=== PATIENT | male | born 1965 | race Caucasian/White ===

== ENCOUNTER 2021-03-28 09:55 | Outpatient (REF) | payer OTHER, SELFPAY ==
[2021-03-28 10:22] LABS: Basophils Absolute Auto 0.2 X10*3/uL (0.0-0.2); Basophils Percent Auto 1.2 % (0-2); Eosinophils Absolute Auto 0.5 X10*3/uL (0.0-0.4); Eosinophils Percent Auto 3.7 % (0-4); Hematocrit 48.6 % (42.0-52.0); Hemoglobin 15.9 g/dl (14.0-18.0); Imm Gran Abs Auto 0.03 X10*3/uL (0.00-0.03); Imm Gran Pct Auto 0.2 % (0.0-0.4); Lymphocytes Percent Auto 16.8 % (20-40); MANUAL DIFF FLAG NO; Mean Corpuscular HGB Conc 32.7 g/dl (31.0-36.0); Mean Corpuscular Hemoglobin 30.7 pg (27.0-33.0); Mean Corpuscular Volume 93.8 fL (80.0-98.0); Mean Platelet Volume 9.8 fL (9.4-12.4); Monocytes Absolute Auto 1.3 X10*3/uL (0.1-1.2); Monocytes Percent Auto 11.1 % (2-11); Platelet Count 330 X10*3/uL (160-400); Red Blood Count 5.18 X10*6/uL (4.60-5.80); Red Cell Distribution Width 13.5 % (11.0-16.0)
[2021-03-28 11:01] LABS: Alanine Aminotransferase 39 U/L (0-40); Albumin Level 4.5 g/dL (3.5-5.0); Alkaline Phosphatase 71 U/L (39-117); Anion Gap 14 (12-20); Aspartate Amino Transferase 22 U/L (5-37); Bilirubin Total 0.7 mg/dL (0.0-1.0); Blood Urea Nitrogen 11 mg/dL (9-16); Calcium 9.8 mg/dL (8.4-10.2); Carbon Dioxide 24 mmol/L (22-29); Chloride 108 mmol/L (96-108); Cholesterol 197 mg/dL; Estimated Glomerular Filt Rate > 60; Glucose Fasting 94 mg/dL (60-99); HDL Cholesterol 37 mg/dL; LDL Cholesterol Calculated 137 mg/dl; Potassium 4.3 mmol/L (3.3-5.1); Sodium 142 mmol/L (135-145); Total Protein 7.8 g/dL (6.5-8.0); Triglycerides 116 mg/dL
[2021-03-28 11:17] LABS: Uric Acid 7.1 mg/dL (3.4-7.0)
== END 2021-03-28 09:56 | disposition home or self-care (01) ==
LOC: HO.10HDL 09:55
PROVIDERS: Visit Provider Internal Medicine
DX: M10.9 Gout, unspecified (principal); J45.909 Unspecified asthma, uncomplicated; Z68.23 Body mass index [BMI] 23.0-23.9, adult; Z72.0 Tobacco use
CPT/HCPCS: 36415; 80053; 80061; 84550; 85025

== ENCOUNTER 2024-03-23 09:30 | Emergency (ER) | payer OTHER, SELFPAY ==
--- NOTE | ~2024-03-23 | CT_ITS ---
CLINICAL HISTORY: R sided swelling, ? abscess (dental) CT soft tissue neck with contrast Comparison: None Findings: The visualized intracranial contents are unremarkable. There is lucency surrounding the root of a right mandibular molar tooth. Diffuse soft tissue edema of the right side of the neck. There is enlargement of the right palatine tonsil. There is complex fluid density surrounding the right side of the mandible, i.e., 1 x 3.8 cm posterior to the mandible series 2, image 63 and on image 46. There is swelling and inferior displacement of the right submandibular gland. There are reactive right-sided cervical lymph nodes. Asymmetric soft tissue edema of the right side of the hypopharynx best visualized on series 4, image 37. There is effacement of the right piriformis sinus. Thickening of the epiglottis best visualized on the lateral view image 22. No evidence of retropharyngeal abscess. There is leftward deviation of the airway. Salivary glands are within normal limits. No sialoliths. Thyroid gland is unremarkable. Visualized lung apices are clear. No acute fracture or dislocation. IMPRESSION: Likely infection secondary to a dental abscess involving a right mandibular molar tooth. Large abscess of the right neck surrounding the mandible. Asymmetric large area of soft tissue edema involving the right side of the hypopharynx. Phlegmon or early abscess can not be excluded. There is thickening of the epiglottis and leftward deviation of the airway. ENT evaluation is recommended. This document has been electronically signed by: Agnieszka Villalba MD on 03/23/2024 14:20:45
[2024-03-23 09:47] VITALS: BP 110/72; PULSE 113; RESP 18; TEMP 36.9; O2SAT 98; BMI 18.3
[2024-03-23 10:05] LABS: IDNOW Serial# 58CA691E; Strep A Nucleic Acid Negative (Negative)
--- NOTE | 2024-03-23 11:38 | ED.GENADULT ---
HPI - General Adult General Chief complaint: Dental/Oral Stated complaint: sore throat, cough Time Seen by Provider: 03/23/24 11:34 Source: patient, RN notes reviewed and old records reviewed Mode of arrival: ambulatory Limitations: no limitations History of Present Illness ED Provider: Rut [facility] narrative: Patient is a 58-year-old male with history of COPD, smoker but states has not smoked in the past 4 days presenting to the emergency department with complaint of right-sided neck and facial swelling. States symptoms began as right lower jaw dental pain and progressed to swelling to the entire right side of his face. Complains muffled voice, chills, difficulty swallowing. States he is not able to fully open his jaw. Denies any spontaneous discharge or drainage. MD complaint: jaw swelling Onset (ago): day(s) Quality: aching Associated symptoms: fever/chills Treatments prior to arrival: none Related Data Allergies Allergy/AdvReac Type Severity Reaction Status Date / Time No Known Allergies Allergy Verified 03/23/24 09:51 Review of Systems Review of Systems: As per HPI Yes all other systems are reviewed and are negative Constitutional: Constitutional: Reports as per HPI [facility] Social History Social History Advance Directives: No Advance Directives Information Provided: Yes Physical Exam ED Vital Signs: Vital Signs - 24 hr 03/23/24 09:47 03/23/24 13:00 Temperature 98.4 F 98.3 F Pulse Rate 113 H 80 Respiratory Rate 18 16 Blood Pressure 110/72 119/78 Pulse Oximetry 98 97 Oxygen Delivery Method Room Air Room Air BMI result Body Mass Index 18.3 Vital signs have been reviewed and appear to be correct. Blood pressure normal. Heart rate mildly tachycardic. Respiratory rate normal. Temperature normal. Oxygen saturation normal. Const General: cooperative, healthy appearing and no acute distress Orientation/consciousness: oriented to person, oriented to place, oriented to time and patient oriented x3 Limitations: no limitations HENMT Head: Yes normocephalic and Yes atraumatic Ears: external ears normal General nose exam: Normal external nose present Face and sinus: Yes face symmetric Mouth: oropharynx normal, moist mucous membranes, no drooling, muffled voice and restricted motion Teeth and gingiva: poor dentition Throat: Yes uvula midline and No uvular edema Eyes Pupils: Equal, round and reactive pupils present Neck Neck: Yes normal visual inspection, Yes supple and Yes submandibular swelling (right) Resp Effort & Inspection: normal respiratory effort and able to speak in complete sentences Auscultation: clear to auscultation bilaterally Cardio Rate: regular rate Rhythm: regular rhythm Heart sounds: S1 normal heart sound present and S2 normal heart sound present GI Palpation (GI): Soft to palpation and nontender Auscultation: normoactive bowel sounds General: Yes no CVA tenderness Back/Spine/Pelvis Back: no CVA tenderness Skin General skin exam: elasticity normal and turgor normal Neuro General: oriented to person, oriented to place, oriented to time, patient oriented x3, moves all extremities, no focal motor deficits and CN's II-XI intact bilaterally Cranial nerves: Yes Equal, round and reactive pupils present Cognition (Neuro): normal cognition Extrem General: Yes full ROM, Yes no pedal edema and Yes no calf tenderness Psych Mental Status: mental status grossly normal Affect: normal affect Thought process: Normal thought process present Course Reevaluation(s) Reevaluation #1: Received call from lab of significant leukocytosis, patient is now meeting sepsis criteria. Blood cultures and lactic ordered as well as Zosyn. Time: 12:42 Medications Administered Discontinued Medications Generic Name Dose Route Start Last Admin Trade Name Freq PRN Reason Stop Dose Admin Piperacillin Sod/Tazobactam 50 mls @ 100 mls/hr 03/23/24 12:41 03/23/24 13:25 Sod 3.375 gm/ Sodium Chloride IV 03/23/24 13:10 Infused ONCE ONE Infusion Iohexol 60 ml 03/23/24 13:17 03/23/24 13:17 Iohexol 350 Mg/Ml 100 Ml Infus..Btl IV 03/23/24 13:18 60 ml ONCE ONE Administration Ketorolac Tromethamine 15 mg 03/23/24 14:10 03/23/24 14:28 Ketorolac Tromethamine 15 Mg/Ml Vial IVPUSH 03/23/24 14:11 15 mg ONCE ONE Administration Medical Decision Making Medical Decision Making MDM Narrative: Patient is a 58-year-old male with history of COPD, smoker but states has not smoked in the past 4 days presenting to the emergency department with complaint of right-sided neck and facial swelling. On exam patient is awake, A+Ox3, mildly tachycardic, VS otherwise WNL, afebrile, normal neurological exam without focal deficits, physical exam findings as above. Given reported symptoms and physical exam findings, initial differential includes but is not limited to deep neck space infection, dental infection/abscess, malignancy/mass, parotitis. Labs notable for significant leukocytosis with left shift, elevated ESR and CRP. Lactic normal. CT soft tissue neck notable for large abscess the right neck surrounding the mandible with asymmetric soft tissue edema and leftward deviation of the airway. My interpretation is in agreement with the radiologist's interpretation. Patient's airway is stable at this time. Case discussed with Dr. Blanco who is in agreement with transfer for management by ENT which is not available here. Call placed to [facility], spoke with ENT who feels [facility]FS should manage as infection appears to have originated from a dental infection. Spoke to Dr. Rodriguez from [facility] who states he is unable to directly admit the patient, and recommends ED to ED transfer. ED to ED transfer accepted by Dr. Escobar, attending MD at [facility]. Patient states that he is not willing to be transported via ambulance as this will not be covered by his insurance. Discussed with patient the severity of his condition and that the risks of refusing transport include airway compromise and . Patient is alert and oriented x 3, has the capacity to make this decision at this time. He is not currently experiencing any airway compromise. Patient states his daughter will drive him directly to [facility] ED. Patient advised to go directly to [facility] and not stop anywhere on the way, and not eat or drink anything on the way. Patient verbalized understanding of and agreement with plan. The patient has decided to leave against medical advice because he is refusing ambulance transport to [facility] ED. They have normal mental status and adequate capacity to make medical decisions. The risks have been explained to the patient, including airway compromise, worsening illness, chronic pain, permanent disability and . The patient was able to understand and state the risks and benefits of ambulance transport. This was witnessed by nurse Gaby, NORA, and me. They had the opportunity to ask questions about their medical condition. The patient was treated to the extent that they would allow and knows that they may return for care at any time. Follow-up has been discussed and arranged with Dr. Escobar, attending MD at [facility]. Differential Diagnosis Differential Diagnoses: The differential diagnosis associated with the presentation includes As per [facility] Admission/Observation Consideration of admission/observation: Escalation of care including admission/observation considered Consult Healthcare Provider Management of the patient was discussed with: Customer Sales Distributor (Dr. Blanco) Lab Data [facility] Lab Attestation statement: I reviewed the patient's lab results. As per [facility] 03/23/24 12:04 03/23/24 12:04 Labs: Lab Results 03/23/24 03/23/24 03/23/24 Range/Units 09:53 12:04 12:52 WBC 34.1 H* (4.8-10.8) X10*3/uL RBC 5.07 (4.60-5.80) X10*6/uL Hgb 16.0 (14.0-18.0) g/dl Hct 46.1 (42.0-52.0) % MCV 90.9 (80.0-98.0) fL MCH 31.6 (27.0-33.0) pg MCHC 34.7 (31.0-36.0) g/dl RDW 14.1 (11.0-16.0) % Plt Count 249 (160-400) X10*3/uL MPV 10.1 (9.4-12.4) fL Immature Gran % (Auto) 2.4 H (0.0-0.4) % Neut % (Auto) 82.4 H (45-73) % Lymph % (Auto) 2.1 L (20-40) % [place] % (Auto) 12.6 H (2-11) % Eos % (Auto) 0.0 (0-4) % Baso % (Auto) 0.5 (0-2) % Lymph # (Auto) 0.7 L (1.2-4.9) X10*3/uL [place] # (Auto) 4.3 H (0.1-1.2) X10*3/uL Eos # (Auto) 0.0 (0.0-0.4) X10*3/uL Baso # (Auto) 0.2 (0.0-0.2) X10*3/uL Abs Immat Gran (auto) 0.81 H (0.00-0.03) X10*3/uL Absolute Neuts (auto) 28.1 H (2.0-8.3) x10*3/uL Absolute Nucleated RBC 0.000 (0.0-0.012) X10*3/uL Nucleated RBC % (auto) 0.0 (0.0-0.2) /100WBC Smear Tech's Comments VERIFIED ESR 51 H (0-15) MM/HR PT 11.2 (10.9-12.4) SEC INR 1.0 (0.9-1.1) Sodium 138 (135-145) mmol/L Potassium 4.4 (3.3-5.1) mmol/L Chloride 100 (96-108) mmol/L Carbon Dioxide 24 (22-29) mmol/L Anion Gap 18 (12-20) BUN 30 H (9-16) mg/dL Creatinine 1.30 (0.5-1.4) mg/dL Estim Creat Clear Calc 48.7 Estimated GFR 57 Random Glucose 101 (60-115) mg/dL Lactic Acid 1.4 (0.5-2.0) mmol/L Calcium 10.4 H D (8.4-10.2) mg/dL Total Bilirubin 0.6 (0.0-1.0) mg/dL AST 22 (5-37) U/L ALT 10 (0-40) U/L Alkaline Phosphatase 116 (39-117) U/L C-Reactive Protein 39.79 H (< or = 0.50) mg/dL Total Protein 8.9 H (6.5-8.0) g/dL Albumin 4.2 (3.5-5.0) g/dL S. pyogenes GrpA MUSA Negative (Negative) Independent Interpretation I performed an independent interpretation of an: CT Scan Interpretation: CT soft tissue neck notable for large abscess of right neck surrounding the mandible with associated soft tissue edema involving right hypopharynx and leftward deviation of the airway Radiology Impression Discussion of test interpretation with radiology: I have reviewed the radiologist's reading. Radiologist Impression: IMPRESSION: Likely infection secondary to a dental abscess involving a right mandibular molar tooth. Large abscess of the right neck surrounding the mandible. Asymmetric large area of soft tissue edema involving the right side of the hypopharynx. Phlegmon or early abscess can not be excluded. There is thickening of the epiglottis and leftward deviation of the airway. ENT evaluation is recommended. External Record Review External record reviewed: Inpatient record, Office record and Outpatient record Prescription Management I considered prescription management with: Antibiotic Critical Care Time Critical Care Time Critical Care Time: Yes Total Critical Care Time: 55 Attestation: I have personally provided critical care time exclusive of time spent on separately billable procedures. Time includes review of lab data, radiology results, discussion with consultants, and monitoring for potential decompensation. Intervention performed as documented. Discharge Plan Discharge Clinical Impression: Abscess of neck Patient Disposition: Left Against Medical Advice Additional Instructions: You have been accepted as an ED to ED transfer at [facility] at [address] [place] [address] in [place], [place]. YOU MUST GO DIRECTLY TO THE EMERGENCY DEPARTMENT THERE. Do not make any stops on your way, do not eat or drink anything on your way there. If you develop difficulty breathing at any point on the way there, call 911 IMMEDIATELY. Stand Alone Forms: Against Medical Advice Print Language: Greek
[2024-03-23 12:19] LABS: Prothrombin Time 11.2 SEC (10.9-12.4)
[2024-03-23 12:33] LABS: Basophils Absolute Auto 0.2 X10*3/uL (0.0-0.2); Basophils Percent Auto 0.5 % (0-2); Hematocrit 46.1 % (42.0-52.0); Imm Gran Abs Auto 0.81 X10*3/uL (0.00-0.03); Imm Gran Pct Auto 2.4 % (0.0-0.4); Lymphocytes Absolute Auto 0.7 X10*3/uL (1.2-4.9); Lymphocytes Percent Auto 2.1 % (20-40); MANUAL DIFF FLAG SCAN; Mean Corpuscular HGB Conc 34.7 g/dl (31.0-36.0); Mean Corpuscular Hemoglobin 31.6 pg (27.0-33.0); Mean Corpuscular Volume 90.9 fL (80.0-98.0); Mean Platelet Volume 10.1 fL (9.4-12.4); Monocytes Absolute Auto 4.3 X10*3/uL (0.1-1.2); Monocytes Percent Auto 12.6 % (2-11); Neutrophils Absolute Auto 28.1 x10*3/uL (2.0-8.3); Neutrophils Percent Auto 82.4 % (45-73); Platelet Count 249 X10*3/uL (160-400); Red Blood Count 5.07 X10*6/uL (4.60-5.80); Red Cell Distribution Width 14.1 % (11.0-16.0); SCAN SMEAR FLAG 1
[2024-03-23 12:36] LABS: White Blood Count 34.1 X10*3/uL (4.8-10.8)
[2024-03-23 12:44] LABS: SLIDE REVIEW VERIFIED
[2024-03-23 12:49] LABS: Alanine Aminotransferase 10 U/L (0-40); Albumin Level 4.2 g/dL (3.5-5.0); Alkaline Phosphatase 116 U/L (39-117); Anion Gap 18 (12-20); Aspartate Amino Transferase 22 U/L (5-37); Bilirubin Total 0.6 mg/dL (0.0-1.0); Blood Urea Nitrogen 30 mg/dL (9-16); C Reactive Protein 39.79 mg/dL (< or = 0.50); Calcium 10.4 mg/dL (8.4-10.2); Carbon Dioxide 24 mmol/L (22-29); Chloride 100 mmol/L (96-108); Creatinine Clr Calc Pharmacy 48.7; Estimated Glomerular Filt Rate 57; Glucose Random 101 mg/dL (60-115); Potassium 4.4 mmol/L (3.3-5.1); Sodium 138 mmol/L (135-145); Total Protein 8.9 g/dL (6.5-8.0)
[2024-03-23] MEDS: Piperacillin Sodium/Tazobactam 3.375 GM in 0.9 % Sodium Chloride 50 ML IV (12:52)
[2024-03-23 12:57] LABS: Erythrocyte Sedimentation Rate 51 MM/HR (0-15)
[2024-03-23 13:00] VITALS: BP 119/78; PULSE 80; RESP 16; TEMP 36.8; O2SAT 97
[2024-03-23] MEDS: iohexoL 350 MG/ML 100 ML INFUS..BTL 60 ML IV (13:17)
[2024-03-23 13:26] LABS: Lactic Acid 1.4 mmol/L (0.5-2.0)
[2024-03-23] MEDS: Ketorolac Tromethamine 15 MG/ML VIAL IVPUSH (14:28)
--- NOTE | 2024-03-23 16:15 | PC.NURSE ---
PT refused to take ambulance to for transfer pt to sign out AMA, this nurse and provider went over risks of going ama wit pt,pt verbalizes risks, ama paper signed, refusal for transfer paper signed.
[2024-03-23 20:58] VITALS: BP 119/78; PULSE 80; RESP 16; TEMP 36.8; O2SAT 97
--- NOTE | 2024-03-24 00:01 | PC.NURSE ---
Addendum entered by Gaby Christy 03/24/24 00:02: @ 1252 03/23/24 Original Note: no fluids per provider
== END 2024-03-23 16:58 | disposition left against medical advice (07) ==
PROVIDERS: Registered Nurse Emergency; Emergency Provider Emergency Medicine; PCP Internal Medicine
DX: L02.11 Cutaneous abscess of neck (principal); J02.9 Acute pharyngitis, unspecified; R00.0 Tachycardia, unspecified; R05.9 Cough, unspecified; R50.9 Fever, unspecified; F17.210 Nicotine dependence, cigarettes, uncomplicated; Z79.899 Other long term (current) drug therapy
CPT/HCPCS: 36415; 70491; 80053; 83605; 85025; 85610; 85652; 86140; 87040; 87076; 87205; 87651; 96374; 96375; 99284; J1885; J2543; Q9967

== ENCOUNTER 2024-05-19 13:24 | Emergency (ER) | payer OTHER, SELFPAY ==
--- NOTE | ~2024-05-19 | CT_ITS ---
CLINICAL HISTORY: ? abscess CT soft tissue neck with contrast Comparison: CT/AR/SR - CT SOFT TISSUE NECK W IV CON - 03/23/24 13:11 EST Findings: The visualized intracranial contents are unremarkable. Previous right-sided facial abscess surrounding the mandible appears resolved. There has been additional dental extractions along the right mandible with resulting lucency. Previous adenopathy as decreased. The thyroid gland is unremarkable. The nasopharynx, oropharynx and hypopharynx appear symmetric. Temporomandibular joints are stable. Paranasal sinuses appear essentially clear. Lung apices are clear. Impression: Interval resolution of the previous right-sided facial abscess surrounding the mandible. Decreasing local adenopathy. No new abscess. Additional dental extractions have been performed with resulting lucencies within the mandible and maxilla. This document has been electronically signed by: Roberth Anne MD on 05/19/2024 18:36:06
[2024-05-19 14:21] VITALS: BP 155/77; PULSE 48; RESP 16; TEMP 36.7; O2SAT 97; BMI 23.5
--- NOTE | 2024-05-19 14:22 | ED_ITS ---
HPI - General Adult General Chief complaint: General Medical Stated complaint: CT for throat , sent by Time Seen by Provider: 05/19/24 16:33 Source: patient, RN notes reviewed and old records reviewed Mode of arrival: ambulatory Limitations: no limitations History of Present Illness ED Provider: Jeff PORTER narrative: 58-year-old male presents for evaluation of a sore throat. Patient was seen here 2 days ago with a large neck abscess and dental abscess. He was better where he required 2 different operations to drain the abscess +4 days he has had pain with swallowing. He was able to manage his secretions. His pain is mostly right-sided He has pain with opening his mouth He denies any difficulty breathing. He reports that he recently finished antibiotics for oral surgery Per his med rec, the patient was given a 10 day course of amoxicillin on 05/06/2024 Related Data Allergies Allergy/AdvReac Type Severity Reaction Status Date / Time No Known Allergies Allergy Verified 05/19/24 14:25 Review of Systems 2 Constitutional: Constitutional: Denies body ache(s), Denies chills and Denies fever(s) ENT: Denies vertigo, Denies dizziness, Reports sore throat and Reports throat swelling Cardiovascular: Cardiovascular: Denies chest pain and Denies dyspnea Respiratory: Respiratory: Denies cough and Denies dyspnea Gastrointestinal: Gastrointestinal: Denies abdominal pain, Denies nausea and Denies vomiting Musculoskeletal: Musculoskeletal: Denies back pain Integumentary/Breasts: Skin/Breast: Denies rash Neurologic: Denies vertigo and Denies dizziness Allergic/Immunologic: Allergic/Immunologic: Reports throat swelling PMFSH Social History Social History Advance Directives: No Advance Directives Information Provided: No Physical Exam ED Vital Signs: Vital Signs - 24 hr 05/19/24 14:21 05/19/24 17:04 Temperature 98.1 F Pulse Rate 48 L 48 L Respiratory Rate 16 14 Blood Pressure 155/77 H 157/76 H Pulse Oximetry 97 99 Oxygen Delivery Method Room Air Room Air BMI result Body Mass Index 23.5 Const General: healthy appearing, comfortable, no acute distress, alert and awake Nutritional Appearance: well nourished Orientation/consciousness: patient oriented x3 HENMT Other: Patient has very poor dentition. No Ubaldo's angina, no fullness of the soft palate Head: Yes normocephalic and Yes atraumatic Throat: Yes posterior oropharynx normal Eyes Eyelids: Yes eyelids normal Conjunctivae: conjunctivae normal Sclerae: sclerae normal Corneas: corneas normal Pupils: Equal, round and reactive pupils present EOM: EOMs intact bilaterally Neck Other: There is no anterior neck edema Neck: Yes full ROM Resp Effort & Inspection: normal respiratory effort, able to speak in complete sentences and not labored Skin General skin exam: elasticity normal Neuro General: patient oriented x3 Cranial nerves: Yes Equal, round and reactive pupils present and Yes Bilaterally intact EOM present Cognition (Neuro): normal cognition Extrem Other: Moving all extremities well without any obvious deformities Course Course Course Narrative: This is a rapid medical exam performed by Medina Bettencourt NP: Additional HPI, ROS, PE not included below will be deferred to primary provider. Patient is a 58-year-old male with history of smoking presenting from urgent care with complaint of severe sore throat x 4 days. Just finished a week of abx without improvement. Pain worse on right side, +trismus. Recent transfer to [facility] for surgery for neck abscess, patient states he requires 2 surgeries, multiple drains, etc. Plan: labs, CT Reevaluation(s) Reevaluation #1: Clinically, the patient does not have any obvious did not feel or retropharyngeal abscess. The CT scan does not show any evidence of abscess. I discussed these results with the patient, he may have a viral pharyngitis, but I do not see any indication for further antibiotics. We will discharge the patient to follow up with his outpatient providers. He reports he actually sees his PCP tomorrow Time: 18:45 Medications Administered Discontinued Medications Generic Name Dose Route Start Last Admin Trade Name Martha PRN Reason Stop Dose Admin Sodium Chloride 1,000 mls @ 999 mls/hr 05/19/24 17:00 05/19/24 17:14 Ns IV 05/19/24 18:00 999 mls/hr .Q1H1M CHRISTA Administration Iohexol 60 ml 05/19/24 17:38 05/19/24 17:39 Iohexol 350 Mg/Ml 100 Ml Infus..Btl IV 05/19/24 17:39 60 ml ONCE ONE Administration Ketorolac Tromethamine 15 mg 05/19/24 16:56 05/19/24 17:14 Ketorolac Tromethamine 15 Mg/Ml Vial IVPUSH 05/19/24 16:57 15 mg ONCE ONE Administration Medical Decision Making Medical Decision Making [facility] Narrative: 58-year-old male presents for evaluation of a sore throat. He was here 2 months ago for a neck and dental abscess. His exam is reassuring, however given his recent significant abscess requiring operating room intervention we will get a CT scan of the neck to rule out a small abscess or developing abscess. The patient's labs are significantly improved compared to his recent visit. He has no leukocytosis and inflammatory markers are negative. Differential Diagnosis Differential Diagnoses: The differential diagnosis associated with the presentation includes Neck abscess Pharyngitis Strep pharyngitis Dental abscess Dental caries Lab Data [facility] Lab Attestation statement: I reviewed the patient's lab results. No leukocytosis or significant anemia. Normal platelet count. No significant electrolyte abnormalities warranting intervention. Renal function 5 05/19/24 15:04 05/19/24 15:04 Labs: Lab Results 05/19/24 05/19/24 Range/Units 15:04 17:06 WBC 8.5 (4.8-10.8) X10*3/uL RBC 4.34 L (4.60-5.80) X10*6/uL Hgb 13.5 L (14.0-18.0) g/dl Hct 39.3 L (42.0-52.0) % MCV 90.6 (80.0-98.0) fL MCH 31.1 (27.0-33.0) pg MCHC 34.4 (31.0-36.0) g/dl RDW 14.7 (11.0-16.0) % Plt Count 293 (160-400) X10*3/uL MPV 9.6 (9.4-12.4) fL Immature Gran % (Auto) 0.4 (0.0-0.4) % Neut % (Auto) 62.1 (45-73) % Lymph % (Auto) 23.6 (20-40) % [place] % (Auto) 10.6 (2-11) % Eos % (Auto) 2.5 (0-4) % Baso % (Auto) 0.8 (0-2) % Lymph # (Auto) 2.0 (1.2-4.9) X10*3/uL [place] # (Auto) 0.9 (0.1-1.2) X10*3/uL Eos # (Auto) 0.2 (0.0-0.4) X10*3/uL Baso # (Auto) 0.1 (0.0-0.2) X10*3/uL Abs Immat Gran (auto) 0.03 (0.00-0.03) X10*3/uL Absolute Neuts (auto) 5.3 (2.0-8.3) x10*3/uL Absolute Nucleated RBC 0.000 (0.0-0.012) X10*3/uL Nucleated RBC % (auto) 0.0 (0.0-0.2) /100WBC ESR 3 (0-15) MM/HR Sodium 144 (135-145) mmol/L Potassium 3.5 D (3.3-5.1) mmol/L Chloride 109 H (96-108) mmol/L Carbon Dioxide 29 (22-29) mmol/L Anion Gap 10 L (12-20) BUN 9 (9-16) mg/dL Creatinine 0.81 (0.5-1.4) mg/dL Estim Creat Clear Calc 82.2 Estimated GFR > 60 Random Glucose 82 (60-115) mg/dL Calcium 9.2 D (8.4-10.2) mg/dL Total Bilirubin 0.4 (0.0-1.0) mg/dL AST 23 (5-37) U/L ALT 15 (0-40) U/L Alkaline Phosphatase 69 (39-117) U/L C-Reactive Protein < 0.04 (< or = 0.50) mg/dL Total Protein 7.5 (6.5-8.0) g/dL Albumin 3.9 (3.5-5.0) g/dL S. pyogenes GrpA MUSA Negative (Negative) Discharge Plan Discharge Clinical Impression: Pharyngitis Patient Disposition: Home, Self-Care Instructions: Pharyngitis (ED) Additional Instructions: Your blood work today was reassuring, you tested negative for strep pharyngitis. Your CT scan does not show any new abscesses and does show resolution of the previous abscess from 2 months ago Fin or Tylenol or sore throat. You may also use Chloraseptic spray or magic mouthwash which is [id number] medication to help with the pain in your throat Stand Alone Forms: Work/School Release Print Language: Faroese
[2024-05-19 15:07] LABS: MANUAL DIFF FLAG NO
[2024-05-19 15:19] LABS: Basophils Absolute Auto 0.1 X10*3/uL (0.0-0.2); Basophils Percent Auto 0.8 % (0-2); Eosinophils Absolute Auto 0.2 X10*3/uL (0.0-0.4); Eosinophils Percent Auto 2.5 % (0-4); Hematocrit 39.3 % (42.0-52.0); Hemoglobin 13.5 g/dl (14.0-18.0); Imm Gran Abs Auto 0.03 X10*3/uL (0.00-0.03); Imm Gran Pct Auto 0.4 % (0.0-0.4); Lymphocytes Percent Auto 23.6 % (20-40); Mean Corpuscular HGB Conc 34.4 g/dl (31.0-36.0); Mean Corpuscular Hemoglobin 31.1 pg (27.0-33.0); Mean Corpuscular Volume 90.6 fL (80.0-98.0); Mean Platelet Volume 9.6 fL (9.4-12.4); Monocytes Absolute Auto 0.9 X10*3/uL (0.1-1.2); Monocytes Percent Auto 10.6 % (2-11); Neutrophils Absolute Auto 5.3 x10*3/uL (2.0-8.3); Neutrophils Percent Auto 62.1 % (45-73); Platelet Count 293 X10*3/uL (160-400); Red Blood Count 4.34 X10*6/uL (4.60-5.80); Red Cell Distribution Width 14.7 % (11.0-16.0); White Blood Count 8.5 X10*3/uL (4.8-10.8)
[2024-05-19 15:31] LABS: Alanine Aminotransferase 15 U/L (0-40); Albumin Level 3.9 g/dL (3.5-5.0); Anion Gap 10 (12-20); Aspartate Amino Transferase 23 U/L (5-37); Bilirubin Total 0.4 mg/dL (0.0-1.0); Blood Urea Nitrogen 9 mg/dL (9-16); C Reactive Protein < 0.04 mg/dL (< or = 0.50); Calcium 9.2 mg/dL (8.4-10.2); Carbon Dioxide 29 mmol/L (22-29); Chloride 109 mmol/L (96-108); Creatinine Clr Calc Pharmacy 82.2; Estimated Glomerular Filt Rate > 60; Glucose Random 82 mg/dL (60-115); Potassium 3.5 mmol/L (3.3-5.1); Sodium 144 mmol/L (135-145); Total Protein 7.5 g/dL (6.5-8.0)
[2024-05-19 15:32] LABS: Alkaline Phosphatase 69 U/L (39-117)
[2024-05-19 16:36] LABS: Erythrocyte Sedimentation Rate 3 MM/HR (0-15)
[2024-05-19 17:04] VITALS: BP 157/76; PULSE 48; RESP 14; O2SAT 99
[2024-05-19] MEDS: 0.9 % Sodium Chloride 1,000 ML 999 ML IV (17:14)
[2024-05-19] MEDS: Ketorolac Tromethamine 15 MG/ML VIAL IVPUSH (17:14)
[2024-05-19 17:27] LABS: IDNOW Serial# 58CA691E; Strep A Nucleic Acid Negative (Negative)
[2024-05-19] MEDS: iohexoL 350 MG/ML 100 ML INFUS..BTL 60 ML IV (17:39)
[2024-05-19 19:18] VITALS: BP 148/72; PULSE 52; RESP 16; TEMP 37; O2SAT 99
== END 2024-05-19 19:18 | disposition home or self-care (01) ==
PROVIDERS: Physician Assistant; Registered Nurse Emergency; Emergency Provider Emergency Medicine; PCP Internal Medicine
DX: J02.9 Acute pharyngitis, unspecified (principal); R13.10 Dysphagia, unspecified; R25.2 Cramp and spasm; Z87.891 Personal history of nicotine dependence; Z79.899 Other long term (current) drug therapy
CPT/HCPCS: 36415; 70491; 80053; 85025; 85652; 86140; 87651; 96374; 99284; J1885; Q9967

== ENCOUNTER → 2024-05-19 16:56 | Outpatient (BNV) | payer OTHER, SELFPAY | PROVIDERS: Emergency Provider Emergency Medicine; PCP Internal Medicine; Visit Provider Radiology Vascular & Interventional Radiology | DX: R07.0 Pain in throat (principal) | CPT/HCPCS: 70491 ==